=== PATIENT | female | born 1955 | race Caucasian/White ===

== ENCOUNTER 2018-01-19 06:36 | Observation (INO) | payer OTHER ==
[2018-01-16 10:07] LABS: BASOPHILS % 0.5 % (0.0-1.0); EOSINOPHILS # (AUTO) 0.2 (0.0-0.4); EOSINOPHILS % 2.7 % (0.0-6.0); HEMOGLOBIN 11.3 g/dL (12.0-16.0); LYMPHOCYTES # (AUTO) 2.4 (1.0-3.2); LYMPHOCYTES % 40.7 % (18.0-39.1); MEAN CORPUSCULAR HEMOGLOBIN 25.3 pg (28-32); MEAN CORPUSCULAR VOLUME 87.4 fL (81-99); MONOCYTES # (AUTO) 0.5 (0.2-0.8); MONOCYTES % 8.4 % (4.4-11.3); NEUTROPHILS # (AUTO) 2.8 (2.1-6.9); NEUTROPHILS % 47.5 % (38.7-80.0); PLATELET COUNT 298 x10e3/uL (140-360); RED BLOOD COUNT 4.46 x10e6/uL (3.6-5.1); RED CELL DISTRIBUTION WIDTH 14.8 % (11.7-14.4)
[~2018-01-19] VITALS: Ht 167.6 cm; Wt 120.7 kg
[~2018-01-19 06:36] MED LIST: ACETAMINOP325 MG/10 PO; ADVIL200 MG PO; Aspirin PO; BENADRYL25 M1 PO; BIOTIN5 MG PO; DEXILANT60 MG PO; FERROUS SULFAT324 MG PO; FLUOXETINE HCL20 M1 PO; GABAPENTIN100 MG PO; METHOCARBAMOL750 MG PO; MULTIVITAMIN PO; OMEPRAZOLE40 MG PO; PERCOCET 5-3251 EACH PO; PREVIDENT 5000100 ML PO; ROPIVACAINE 246.25 MG, EPINEPHRINE HCL 1:1000 0.5 MG, CLONIDINE HCL 0.08 MG, KETOROLAC ... IV ONE; SUCRALFATE1 GM PO; VITAMIN D PO
[2018-01-19] MEDS ORDERED: CELECOXIB 200 MG CAP ONE (07:04)
[2018-01-19] MEDS ORDERED: DEXAMETHASONE SOD PHOS 10 MG/1 ML VIAL ONE (07:04)
[2018-01-19] MEDS ORDERED: GABAPENTIN 300 MG CAP ONE (07:04)
[2018-01-19] MEDS ORDERED: CEFAZOLIN SOD 2 GM/D5W 50ML 50 ML IV ONE (07:05)
[2018-01-19] MEDS ORDERED: MUPIROCIN 2% OINT 22 GM TUBE ONE (07:25)
[2018-01-19] MEDS ORDERED: TRANEXAMIC ACID 1,000 MG/10 ML ML ONE (07:25)
[2018-01-19] MEDS ORDERED: BACITRACIN 50,000 UNIT VIAL ONE (07:26)
[2018-01-19] MEDS ORDERED: SODIUM CHLORIDE 0.9% 1000ML 1,000 ML IV SCH (10:10)
[2018-01-19] MEDS ORDERED: ZOLPIDEM TARTRATE 5 MG TAB PO PRN (10:15)
[2018-01-19] MEDS ORDERED: KETOROLAC TROMETHAMINE 30 MG/ML VIAL IV PRN ×2 (10:15→23:45)
[2018-01-19] MEDS ORDERED: DOCUSATE SODIUM 100 MG CAP PO PRN (10:15)
[2018-01-19] MEDS ORDERED: PROMETHAZINE HCL (IM) 25 MG/ML VIAL IM PRN (10:15)
[2018-01-19] MEDS ORDERED: DIPHENHYDRAMINE HCL INJ 50 MG/ML VIAL IM/IV PRN (10:15)
[2018-01-19] MEDS ORDERED: METOCLOPRAMIDE HCL 10 MG/2ML VIAL ONE (10:29)
[2018-01-19] MEDS ORDERED: HYDROMORPHONE 1MG/1ML INJ ONE ×2 (10:34→10:51)
--- NOTE | 2018-01-19 11:09 | Operative Report ---
DATE OF PROCEDURE: January 19, 2018 [employer]: Fernando Kendall PA-C The patient was brought to the operating room for induction of anesthesia. Throughout this case, my PA's assistance was necessary for retraction of soft tissue and positioning of the extremity. This allows for efficient and technically successful execution of the operation and is considered medically necessary. PREOPERATIVE DIAGNOSIS: Osteoarthritis, left knee. POSTOPERATIVE DIAGNOSIS: Osteoarthritis, left knee. PROCEDURE: Left total knee arthroplasty (added complexity secondary to body mass index over 40). INDICATIONS: The patient is a 62-year-old lady who has end-stage arthritis in her left knee. She has failed conservative management and wishes to proceed with a left total knee replacement. She has been through a right total knee replacement and a right total hip replacement. She is familiar with the procedure and the recovery. She is familiar with the fact that she is at increased risk for perioperative complications due to her body mass index. She states she understands and wishes to proceed. DESCRIPTION OF PROCEDURE: The patient was brought to the operating room and placed under general anesthetic. She received a regional block, prophylactic antibiotics and tranexamic acid in the holding area. Her left lower extremity was prepped and draped in a sterile manner. Added time and personnel was necessary due to her BMI. A preoperative time out was performed. The extremity was exsanguinated and the proximal tourniquet was inflated to 350 mmHg. An anterior approach with a medial parapatellar arthrotomy was performed. Abundant subcutaneous adipose tissue was encountered. Soft tissue releases were performed to bring the knee up into flexion with the patella everted. Complete loss of articular cartilage in the patellofemoral joint and medial compartment was noted. Large marginal osteophytes were noted. The cruciate ligaments were sacrificed. The meniscal remnants were removed. A Johns [employer] Nephew posterior-stabilized Patricia II system was used throughout the case. An extramedullary cutting guide was used to resect the proximal tibia. The cut was referenced off of the least affected lateral compartment. Posterior slope was dialed in to match the existing slope. The tibial baseplate was a size #5. The central fin punch was impacted and attention was directed towards the distal femur. An intramedullary cutting guide was used to resect the distal femur in 6 degrees of valgus and rotation referenced off of a combination of landmarks including [place]'s line, the epicondylar axis, and the posterior condyles. The femoral component was a size #6. The anterior, posterior, and notch cuts were made. Trial reductions were performed. A 9-mm posterior-stabilized insert was felt to provide optimal soft tissue balancing in full extension and 90 degrees of flexion. The patella was resurfaced with a 32 mm x 7.5 mm patellar button. The thickness was checked before and after resurfacing and was right at 22 mm. There was slight lateral subluxation and a lateral retinacular release was performed. Patellar tracking was then noted to be concentric. The trial implants were removed. The knee was thoroughly irrigated with a Pulsavac. The components were cemented into place using a single mix of PALACOS cement pre-loaded with antibiotics. A 100 mL premixed pericapsular injection was placed. The knee was further irrigated while the cement completely cured. The arthrotomy was then closed with interrupted #1 Ethibond. The knee was put through flexion and extension to ensure a secure closure. The skin was closed with subcuticular Vicryl and yariel. A sterile Prevena wound VAC was applied as a dressing. An orthopedic Maximiliano wrap was placed on the knee. The patient was extubated and transported to the recovery room in stable condition. Blood loss was minimal. All needle and sponge counts were correct. Job#: [id number] VENESSA
[2018-01-19] MEDS: ACETAMINOPHEN 1000 MG/100 ML IV SCH ×2 (13:06→18:02)
--- NOTE | 2018-01-19 13:06 | Diagnostic Imaging Report ---
PROCEDURE: X-RAY LEFT KNEE, ONE OR TWO VIEWS COMPARISON: None. INDICATIONS:STATUS POST LEFT KNEE SURGERY FINDINGS: See conclusion. CONCLUSION: Status post total left knee replacement with surrounding soft tissue swelling, air, and yariel consistent with recent surgery. No acute fractures. Dictated by: Leighton Boothe M.D. on 01/19/2018 at 13:12 Electronically approved by: Leighton Boothe M.D. on 01/19/2018 at 13:12
[2018-01-19] MEDS ORDERED: CEFAZOLIN SOD 1 GM/D5W 50ML 50 ML IV SCH (14:00)
[2018-01-19 14:28] VITALS: BP 105/58
[2018-01-19] MEDS ORDERED: FENTANYL CITRATE/PF 100MCG/2 ML INJ ONE (15:31)
[2018-01-19] MEDS ORDERED: MIDAZOLAM HCL 2 MG/2 ML VIAL ONE (15:31)
[2018-01-19] MEDS ORDERED: HYDROCODONE/APAP 5MG-325MG TAB PO PRN (16:00)
[2018-01-19] MEDS: CEFAZOLIN SOD 1 GM VIAL IV SCH ×2 (16:05→23:35)
[2018-01-19] MEDS: CELECOXIB 200 MG CAP PO SCH (16:06)
[2018-01-19] MEDS: ASPIRIN 325 MG TAB PO SCH (16:06)
[2018-01-19] MEDS: HYDROCODONE/APAP 7.5MG-325MG 1 EA TAB PO PRN ×3 (16:06→21:08)
[2018-01-19 16:48] VITALS: BP 91/53
[2018-01-19] MEDS ORDERED: EPINEPHRINE HCL INJ 1 MG/ML AMP ONE (17:55)
[2018-01-19] MEDS ORDERED: BUPIVACAINE HCL 0.5% INJ 30 ML VIAL INJ ONE (17:55)
[2018-01-19] MEDS: ONDANSETRON HCL INJ 2 MG/ML VIAL IV PRN (18:03)
[2018-01-19 20:00] VITALS: BP 108/61
[2018-01-19] MEDS ORDERED: ONDANSETRON HCL INJ 2 MG/ML VIAL ONE (20:09)
[2018-01-19] MEDS ORDERED: LIDOCAINE HCL 2% LOCAL INJ 5 ML SDV VIAL INJ ONE (20:09)
[2018-01-19] MEDS ORDERED: SEVOFLURANE INHAL SOLN 250 ML PEN BTL ONE (20:09)
[2018-01-19] MEDS ORDERED: EPHEDRINE SULFATE INJ 50 MG/10 ML SYR ONE (20:09)
[2018-01-19] MEDS ORDERED: PROPOFOL IV EMULSION 10 MG/ML 20 ML VIAL ONE (20:09)
--- NOTE | 2018-01-19 20:26 | Consultation ---
DATE OF CONSULTATION: January 19, 2018 PRIMARY CARE PHYSICIAN: Dr. Mateo Humphrey. CHIEF COMPLAINT: Status post left knee replacement. HISTORY: The patient is a 62-year-old female with multiple chronic medical problems including obesity, osteoarthritis with a history of right knee replacement now status post left knee replacement. The patient is postoperative today. She is doing well. She is stable. No chest pain, no shortness of breath. Reasonable left knee pain status post surgery. The patient is stable at this time. PAST MEDICAL HISTORY: Chronic multiple back surgeries and lumbar spinal fusion. History of JEFFRY to the lumbar pain from pain management. Gastric bypass surgery. Hernia surgery. Hysterectomy. Benign pancreatic tumor. History of scar removal. Removal of pancreatic tumor. History of gastric ulcer. Fibromyalgia. Rheumatoid arthritis. Reflux history. Right knee replacement. Hip replacement. Recurrent chest pain. Peripheral vascular disease. Major depression. Reflux. SOCIAL HISTORY: The patient does not smoke, drink alcohol, no recreational drugs. ALLERGIES: MORPHINE. HOME MEDICATIONS: List reviewed. REVIEW OF SYSTEMS: Postoperative pain, reasonable. No chest pain. No shortness of breath. PHYSICAL EXAMINATION VITAL SIGNS: Temperature 97, blood pressure 91/53, pulse rate 63, respirations 18. GENERAL: The patient is in no acute distress. He is awake. HEENT: Normocephalic, atraumatic. NECK: Supple grossly. PULMONARY: Clear. CARDIOVASCULAR: Regular rhythm. ABDOMEN: Soft and unremarkable. EXTREMITIES: No cyanosis. Status post left knee replacement. NEUROLOGIC: No focal deficits. LABORATORY DATA: Hemoglobin and hematocrit 11.3 and 39. IMPRESSION 1. Status post left knee replacement. The patient is on observation. 2. Baseline morbid obesity. 3. Fibromyalgia. 4. Rheumatoid arthritis. 5. Morbid obesity. 6. History of multiple spinal and musculoskeletal surgery. PLAN: Resume home medications. Pain control. PT and OT. Discontinue IV fluid after blood pressure. Will monitor the patient closely. Thank you, Dr. Hope, for this consultation. Will follow the patient and adjust the medication with you. Job#: [id number]
[2018-01-19] MEDS: GABAPENTIN 300 MG CAP PO SCH (20:35)
[2018-01-19] MEDS ORDERED: GABAPENTIN 100 MG CAP PO SCH (21:00)
[2018-01-20] VITALS: BP 105/53
[2018-01-20] MEDS: HYDROCODONE/APAP 7.5MG-325MG 1 EA TAB PO PRN ×3 (02:26→15:30)
[2018-01-20 04:00] VITALS: BP 101/54
[2018-01-20] MEDS: METHOCARBAMOL 750 MG TAB PO PRN ×2 (04:37→15:30)
[2018-01-20 04:44] LABS: HEMATOCRIT 27.7 % (34.2-44.1); HEMOGLOBIN 8.5 g/dL (12.0-16.0)
[2018-01-20 08:19] VITALS: BP 90/56
[2018-01-20] MEDS: CELECOXIB 200 MG CAP PO SCH ×2 (08:30→16:49)
[2018-01-20] MEDS: GABAPENTIN 300 MG CAP PO SCH ×2 (08:30→15:30)
[2018-01-20] MEDS: ASPIRIN 325 MG TAB PO SCH ×2 (08:30→16:49)
[2018-01-20] MEDS ORDERED: PANTOPRAZOLE SOD 40 MG TABEC PO SCH (09:00)
[2018-01-20] MEDS ORDERED: FLUOXETINE HCL 20 MG CAP PO SCH ×2 (09:00)
[2018-01-20] MEDS ORDERED: FLUOXETINE HCL 10 MG CAP PO SCH (09:00)
[2018-01-20] MEDS ORDERED: CEFAZOLIN SOD 1 GM VIAL IV SCH (10:00)
[2018-01-20] MEDS: CEFAZOLIN SOD 1 GM VIAL IV SCH (10:04)
[2018-01-20] MEDS ORDERED: HYDROCODONE/APAP 5MG-325MG TAB PO PRN (12:00)
[2018-01-20] MEDS ORDERED: ACETAMINOPHEN 650 MG SUPP PR PRN (12:00)
[2018-01-20] MEDS ORDERED: ACETAMINOPHEN 1000 MG/100 ML IV PRN (12:00)
[2018-01-20] MEDS ORDERED: HYDROCODONE/APAP 7.5MG-325MG 1 EA TAB PO PRN (12:00)
[2018-01-20 12:27] VITALS: BP 90/60
[2018-01-20] MEDS: ONDANSETRON HCL INJ 2 MG/ML VIAL IV PRN (12:44)
[2018-01-20] MEDS ORDERED: ASPIRIN325 MG PO (13:21)
[2018-01-20 16:14] VITALS: BP 99/55
== END 2018-01-20 17:57 | disposition home health service (06) ==
LOC: OR 06:36 → PACU V 10:13 → MED/SURG 12:35
PROVIDERS: ADMIT Specialist; ATTEND Specialist
DX: M17.12 Unilateral primary osteoarthritis, left knee (principal); Z96.651 Presence of right artificial knee joint; E66.01 Morbid (severe) obesity due to excess calories; Z96.641 Presence of right artificial hip joint; Z68.41 Body mass index [BMI] 40.0-44.9, adult; M79.7 Fibromyalgia; Z98.84 Bariatric surgery status; M06.9 Rheumatoid arthritis, unspecified
CPT/HCPCS: 27447; 36415 ×2; 73560; 85014; 85018; 85025; 86850; 86900; 86920; 93005; 97110; 97116; 97161; 97530 ×2; C1713; G0378 ×2; G8978; G8979; J0171; J0690 ×2; J1100; J1170; J1885 ×2; J2001; J2250; J2405 ×2; J2765; J2795; J7030; S0164